=== PATIENT | male | born 1985 | race Caucasian/White ===

== ENCOUNTER 2018-03-02 16:02 | Emergency (ER) | payer BC ==
[~2018-03-02] VITALS: Ht 182.9 cm; Wt 80.0 kg
[2018-03-02 16:35] VITALS: BP 145/87; PULSE 77; RESP 18; TEMP 98.7; O2SAT 97
[2018-03-02] MEDS ORDERED: ROBA500T PO (16:41)
[2018-03-02] MEDS ORDERED: IBUP-232 PO (16:41)
--- NOTE | 2018-03-02 16:41 | PD ---
HPI Chief Complaint: Back/ Neck Pain or Injury Time Seen by Provider: 16:37 Travel History International Travel<30 days: No Contact w/Intl Traveler<30days: No Traveled to known affect area: No History of Present Illness HPI 32-year-old male presents emergency department for evaluation of a stiff neck. Patient woke up with this this morning. He states he is unable to move his neck to the left. He went to chiropractor today as well and this did not seem to help. Reports that the pain is constant, aching, but at times severe and spasming. Denies any focal deficits weakness. No known trauma. No fever or chills. He has no other symptoms to report. [facility] Past Medical History Medical History: Denies Significant Hx Social History Tobacco Use: No Allergies-Medications (Allergen,Severity, Reaction): Coded Allergies: No Known Allergies (Unverified , 03/02/18) Reported Meds & Prescriptions Reported Meds & Active Scripts Active Ibuprofen 600 Mg Tab 600 Mg PO Q8HR PRN Robaxin (Methocarbamol) 500 Mg Tab 500 Mg PO QID PRN Review of Systems Except as stated in HPI: all other systems reviewed are Neg Physical Exam Narrative GENERAL: Well-nourished male patient in no acute distress SKIN: Focused skin assessment warm/dry. HEAD: Atraumatic. Normocephalic. EYES: Pupils equal and round. No scleral icterus. No injection or drainage. ENT: No nasal bleeding or discharge. Mucous membranes pink and moist. NECK: Trachea midline. No JVD. Tenderness elicited palpation over the left trapezius musculature. Palpable spasm. CARDIOVASCULAR: Regular rate and rhythm. No murmur appreciated. RESPIRATORY: No accessory muscle use. Clear to auscultation. Breath sounds equal bilaterally. NEUROLOGICAL: Awake and alert. No obvious cranial nerve deficits. Motor grossly within normal limits. Normal speech. PSYCHIATRIC: Appropriate mood and affect; insight and judgment normal. Data Data Last Documented VS Vital Signs Date Time Temp Pulse Resp B/P (MAP) Pulse Ox O2 Delivery O2 Flow Rate FiO2 03/02/18 16:35 98.7 77 18 145/87 (106) 97 Orders Orders Ketorolac Inj (Toradol Inj) (03/02/18 16:45) Orphenadrine Inj (Norflex Inj) (03/02/18 16:45) Ed Discharge Order (03/02/18 16:39) [facility] Medical Decision Making Medical Screen Exam Complete: Yes Emergency Medical Condition: Yes Medical Record Reviewed: Yes Differential Diagnosis Muscle spasm versus muscle strain versus discogenic pain versus radiculopathy Narrative Course 32-year-old male presents emergency department for evaluation of inability to turn his neck since waking up this morning. Patient has palpable muscle spasm in the left trapezius musculature. He is provided Norflex and Toradol IM here. He will be discharged home on muscle relaxant and pain control. He is encouraged to follow-up with primary care provider. He is counseled on care and agrees to return immediately with acute worsening symptoms. Diagnosis Primary Impression: Spasmodic torticollis Referrals: Primary Care Physician Patient Instructions: General Instructions, Spasmodic Torticollis (ED) Additional Instructions: Warm moist heat and light massage to the area Follow-up the primary care provider Return immediately with acute worsening symptoms Med/Other Pt SpecificInfo: Prescription(s) given Scripts Ibuprofen (Ibuprofen) 600 Mg Tab 600 MG PO Q8HR Y for PAIN, #30 TAB 0 Refills Prov: Jesenia Ramírez 03/02/18 Methocarbamol (Robaxin) 500 Mg Tab 500 MG PO QID Y for MUSCLE SPASM, #20 TAB 0 Refills Prov: Jesenia Ramírez 03/02/18 Disposition: 01 DISCHARGE HOME Condition: Stable Jesenia Ramírez March 02, 2018 16:41
[2018-03-02] MEDS ORDERED: KETOROLAC TROMETHAMINE 60 MG/2 ML (IM) VIAL IM ONE (16:45)
[2018-03-02] MEDS ORDERED: ORPHENADRINE INJ 60 MG/2 ML AMP IM ONE (16:45)
== END 2018-03-02 16:53 | disposition home or self-care (01) ==
LOC: NEPK 16:02
DX: G24.3 Spasmodic torticollis (principal)
CPT/HCPCS: 96372; 99283; J1885; J2360